=== PATIENT | female | born 1955 | race Caucasian/White ===

== ENCOUNTER 2017-08-19 16:11 | Emergency (ER) | payer OTHER ==
[~2017-08-19] VITALS: Ht 157.5 cm; Wt 108.7 kg
[~2017-08-19 16:11] MED LIST: ADVAIR 250/501 DISK IH; ATARAX,VISTARIL25 MG PO; CLONAZEPAM0.5 MG PO; COUMADIN5 MG PO; ESCITALOPRAM OX20 MG PO; HYDROXYZINE HCL25 MG PO; LEXAPRO20 MG PO; LO-DOSE ASPIRIN81 M1 PO; LOMOTIL TABLET1 EACH PO; LORATADINE10 M2 PO; METOPROLOL SUC100 MG PO; MIRALAX255 GM PO; MONTELUKAST SOD10 MG PO; NITROSTAT0.4 MG SL; NIX 5% CREAM60 GM TP; PANTOPRAZOLE SO40 MG PO; PREDNISONE10 MG PO; PROAIR HFA8.5 GM IH; QUINAPRIL HCL10 MG PO; RANITIDINE HCL150 MG PO; SIMVASTATIN40 MG PO; SINGULAIR10 MG PO; SPIRIVA1 INHALATI IH; TRAMADOL HCL50 MG PO; WARFARIN SODIU2.5 MG PO; XARELTO1 EACH PO
[2017-08-19 18:09] LABS: HEMATOCRIT 39.7 % (36.0-46.0); MCH 31.4 PG (29.0-34.0); MCHC 33.5 G/DL (30.0-36.0); MCV 93.9 FL (83-99); MEAN PLAT.VOLUME 11.4 uM^3 (9.5-12.4); PLATELET COUNT 207 K/uL (156-360); RBC DIS.WIDTH-CV 12.6 % (11.8-14.6); RBC DIS.WIDTH-SD 43.3 % (39-53); RED BLOOD COUNT 4.23 M/uL (3.80-5.20); WHITE BLOOD COUNT 6.8 K/uL (4.1-10.2)
[2017-08-19 18:18] LABS: CHLORIDE 112 mEq/L (99-109); POTASSIUM 3.8 mEq/L (3.7-5.4); SODIUM 145 mEq/L (136-147)
[2017-08-19 18:19] LABS: GLUCOSE 87 mg/dL (70-99)
[2017-08-19 18:21] LABS: ANION GAP 10 MEQ/L (2-14)
[2017-08-19 18:23] LABS: GFR ESTIMATE (CALCULATED) 49 mL/min/
[2017-08-19 18:24] LABS: UREA NITROGEN (BUN) 21 mg/dL (9-23)
[2017-08-19 18:36] LABS: TROP-I INTERPRETATION NEGATIVE; TROPONIN-I < 0.01 ng/mL (0.0-0.30)
[2017-08-19 20:24] LABS: TROP-I INTERPRETATION NEGATIVE; TROPONIN-I < 0.01 ng/mL (0.0-0.30)
[2017-08-19 21:27] VITALS: BP 169/82
== END 2017-08-19 21:36 | disposition home or self-care (01) ==
LOC: EME 16:11
PROVIDERS: Physician Assistant Medical
DX: I10 Essential (primary) hypertension (principal); E78.5 Hyperlipidemia, unspecified; J45.909 Unspecified asthma, uncomplicated; I25.2 Old myocardial infarction; Z79.82 Long term (current) use of aspirin
CPT/HCPCS: 71020; 80048; 84439; 84443; 84484; 85027; 93005; 99281; 99284

== ENCOUNTER 2018-04-26 12:39 | Observation (INO) | payer OTHER ==
[~2018-04-26] VITALS: Ht 157.5 cm; Wt 111.6 kg
[2018-04-26 14:07] LABS: HEMATOCRIT 38.8 % (36.0-46.0); HEMOGLOBIN 13.1 G/DL (11.9-15.5); MCH 31.2 PG (29.0-34.0); MCHC 33.8 G/DL (30.0-36.0); MCV 92.4 FL (83-99); PLATELET COUNT 205 K/uL (156-360); RBC DIS.WIDTH-CV 12.9 % (11.8-14.6); RBC DIS.WIDTH-SD 43.6 % (39-53); WHITE BLOOD COUNT 5.8 K/uL (4.1-10.2)
[2018-04-26 14:14] LABS: INTER. NORMALIZED RATIO 3.1
[2018-04-26 14:15] LABS: CHLORIDE 106 mEq/L (99-109); POTASSIUM 4.3 mEq/L (3.7-5.4); SODIUM 141 mEq/L (136-147)
[2018-04-26 14:17] LABS: GLUCOSE 92 mg/dL (70-99)
[2018-04-26 14:21] LABS: GFR ESTIMATE (CALCULATED) > 59 mL/min/
[2018-04-26 14:22] LABS: UREA NITROGEN (BUN) 19 mg/dL (9-23)
[2018-04-26 14:27] LABS: TROP-I INTERPRETATION NEGATIVE; TROPONIN-I < 0.01 ng/mL (0.0-0.30)
[2018-04-26] MEDS ORDERED: COUMADIN2.5 MG PO ×2 (15:48→15:49)
[2018-04-26] MEDS ORDERED: ZANTAC150 MG PO (15:53)
[2018-04-26] MEDS ORDERED: LISINOPRIL10 MG PO (15:53)
[2018-04-26 17:27] VITALS: BP 180/92
[2018-04-26 19:33] VITALS: BP 122/58
[2018-04-26 21:28] LABS: TROP-I INTERPRETATION NEGATIVE; TROPONIN-I 0.01 ng/mL (0.0-0.30)
[2018-04-27 00:07] VITALS: BP 165/77
[2018-04-27 03:08] LABS: TROP-I INTERPRETATION NEGATIVE; TROPONIN-I < 0.01 ng/mL (0.0-0.30)
[2018-04-27 03:46] VITALS: BP 107/58
[2018-04-27 07:43] VITALS: BP 96/50
[2018-04-27 11:05] LABS: INTER. NORMALIZED RATIO 3.2
[2018-04-27] MEDS ORDERED: ASPIR-LOW81 MG PO (11:21)
[2018-04-27 11:31] VITALS: BP 135/60
[2018-04-27] MEDS ORDERED: METOPROLOL SUCC50 MG PO (12:56)
== END 2018-04-27 14:14 | disposition home or self-care (01) ==
LOC: EME 12:39 → RME 12:39 → EDOF 15:34 → 4SOUTH 15:34 → EDOF 15:34 → ENRESERV 15:35 → 4SOUTH 16:40
PROVIDERS: Hospitalist; Physician Assistant
DX: R07.9 Chest pain, unspecified (principal); R00.1 Bradycardia, unspecified; I10 Essential (primary) hypertension; E78.5 Hyperlipidemia, unspecified; I25.10 Atherosclerotic heart disease of native coronary artery without angina pectoris; Z86.711 Personal history of pulmonary embolism; M25.552 Pain in left hip; Z95.5 Presence of coronary angioplasty implant and graft; Z79.01 Long term (current) use of anticoagulants; I25.2 Old myocardial infarction; M25.551 Pain in right hip; Z91.018 Allergy to other foods; Z88.6 Allergy status to analgesic agent
CPT/HCPCS: 71046; 71275; 80048; 84484; 85027; 85610; 93005; 94640; 94640 76; 99202; 99281; 99285; G0378

== ENCOUNTER 2018-05-24 14:12 | Emergency (ER) | payer OTHER ==
[~2018-05-24] VITALS: Ht 157.5 cm; Wt 111.5 kg
[~2018-05-24 14:12] MED LIST changes: +ASPIR-LOW81 MG PO; +COUMADIN2.5 MG PO; +LISINOPRIL10 MG PO; +METOPROLOL SUCC50 MG PO; +ZANTAC150 MG PO
[2018-05-24] MEDS ORDERED: PATADAY2.5 ML BOTH EYES (15:35)
[2018-05-24] MEDS ORDERED: GUAIFENESIN600 M1 PO (15:35)
[2018-05-24 15:57] VITALS: BP 171/80
== END 2018-05-24 15:58 | disposition home or self-care (01) ==
LOC: EME 14:12
DX: H10.13 Acute atopic conjunctivitis, bilateral (principal); S00.12XA Contusion of left eyelid and periocular area, initial encounter; R51 Headache; Z79.01 Long term (current) use of anticoagulants; I25.2 Old myocardial infarction; I11.0 Hypertensive heart disease with heart failure; I50.9 Heart failure, unspecified; E78.5 Hyperlipidemia, unspecified; J45.909 Unspecified asthma, uncomplicated; X58.XXXA Exposure to other specified factors, initial encounter
CPT/HCPCS: 99281; 99283

== ENCOUNTER 2018-07-18 16:02 | Emergency (ER) | payer OTHER ==
[~2018-07-18] VITALS: Ht 157.5 cm; Wt 110.0 kg
[~2018-07-18 16:02] MED LIST changes: +GUAIFENESIN600 M1 PO; +PATADAY2.5 ML BOTH EYES
[2018-07-18] MEDS ORDERED: FIORICET 50-301 EAC1 PO (19:50)
[2018-07-18 20:02] VITALS: BP 127/77
== END 2018-07-18 20:22 | disposition home or self-care (01) ==
LOC: EME 16:02
DX: R51 Headache (principal); R11.0 Nausea; I10 Essential (primary) hypertension; E78.5 Hyperlipidemia, unspecified; I25.10 Atherosclerotic heart disease of native coronary artery without angina pectoris; I50.9 Heart failure, unspecified; J45.909 Unspecified asthma, uncomplicated; K21.9 Gastro-esophageal reflux disease without esophagitis; G43.909 Migraine, unspecified, not intractable, without status migrainosus; F41.9 Anxiety disorder, unspecified; F32.9 Major depressive disorder, single episode, unspecified; I25.2 Old myocardial infarction; Z79.01 Long term (current) use of anticoagulants; Z88.6 Allergy status to analgesic agent; Z88.1 Allergy status to other antibiotic agents; Z88.8 Allergy status to other drugs, medicaments and biological substances; Z91.018 Allergy to other foods
CPT/HCPCS: 70450; 99281; 99284; J1885